=== PATIENT | male | born 1970 | race Caucasian/White ===

== ENCOUNTER 2024-08-27 23:51 | Emergency (ER) | payer OTHER ==
[2024-08-28] MEDS ORDERED: Sodium Chloride 0.9% 10 ML Syringe FLUSH PRN (00:03)
[2024-08-28 00:22] LABS: BASOPHILS PERCENT AUTO 0.1 % (0.0-1.0); EOSINOPHILS PERCENT AUTO 0.2 % (0.0-6.0); HEMATOCRIT 47.8 % (42.0-52.0); HEMOGLOBIN 16.7 gm/dl (14.0-18.0); IMMATURE GRAN ABSOLUTE AUTO 0.03 K/mm3 (0.00-0.05); IMMATURE GRAN PERCENT AUTO 0.3 % (0.0-0.4); LYMPHOCYTES ABSOLUTE AUTO 0.4 K/mm3 (1.0-4.8); LYMPHOCYTES PERCENT AUTO 4.1 % (24.0-44.0); MEAN CORPUSCULAR HEMOGLOBIN 29.9 pg (28.0-32.0); MEAN CORPUSCULAR HGB CONC 34.9 g/dl (32.0-36.0); MEAN CORPUSCULAR VOLUME 85.5 fl (83.0-99.0); MONOCYTES ABSOLUTE AUTO 0.3 K/mm3 (0.0-0.8); MONOCYTES PERCENT AUTO 3.1 % (0.0-8.0); NEUTROPHILS PERCENT AUTO 92.2 % (41.0-71.0); PLATELET COUNT,PLT 157 K/mm3 (150-400); RED BLOOD CELL COUNT 5.59 M/mm3 (4.52-5.90); WHITE BLOOD CELL COUNT,WBC 9.72 K/mm3 (3.9-11.3)
[2024-08-28] MEDS: Sodium Chloride 0.9% 1,000 ML IV STA (00:34)
[2024-08-28] MEDS: Metoclopramide 10 MG/2 ML SDV IVPUSH ONE (00:35)
[2024-08-28] MEDS: HYDROmorphone 0.5 MG/0.5 ML Syringe IVPUSH ONE (00:37)
[2024-08-28 00:42] LABS: A/G RATIO 1.1 (1-2); ALBUMIN 4.1 g/dl (3.4-5.0); ANION GAP 12.8 (5-15); EST CRCL DRUG DOSING (CG) 85.17 mL/min; POTASSIUM,K 3.8 mEq/L (3.5-5.1); PROTEIN TOTAL,TP 7.8 g/dl (6.4-8.2)
[2024-08-28] MEDS: Iopamidol 612 MG/ML 100 ML Bottle IVPUSH ONE (01:32)
[2024-08-28 02:13] LABS: SLIDE REVIEW ABNORMAL SMEAR
== END 2024-08-28 03:48 | disposition home or self-care (01) ==
LOC: JD.ED 23:51
DX: K52.9 Noninfective gastroenteritis and colitis, unspecified (principal); I10 Essential (primary) hypertension; Z88.8 Allergy status to other drugs, medicaments and biological substances
CPT/HCPCS: 36415; 74177; 80053; 85025; 96361; 96374; 96375; 99285; J2765; J7030; Q9967; 99283